=== PATIENT | female | born 1990 | race Caucasian/White ===

== ENCOUNTER 2020-07-26 12:45 | Outpatient (CLI) | payer SELFPAY ==
[2020-07-26 13:02] VITALS: BMI 37.0
--- NOTE | 2020-07-26 13:18 | US_ITS ---
PROCEDURE INFORMATION: Exam: US , Limited Exam date and time: 07/26/2020 1:18 PM Age: 29 years old Clinical indication: Condition or disease; Other: Full term large abdomen RO twins no care; ; Patient HX: Isauro lady with no ultrasound for this . 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 PT full term and in active labor; Additional info: Possiblity of twins, no prior scans TECHNIQUE: Imaging protocol: Real-time ultrasound of the maternal uterus with image documentation. Exam focused on the clinical indication. COMPARISON: No relevant prior studies available. FINDINGS: Gestation: Single intrauterine gestation. presentation: Vertex presentation. heart rate: heart rate 138 bpm. heart rate 132 bpm. Placenta: Anterior-fundal placenta. Amniotic fluid index: STEPHANIE 26.8 cm. BIOMETRY: Gestational age (AUA): Estimated gestational age 39 weeks, 3 days. Estimated due date (AUA): Estimated date of delivery July 27, 2020. Estimated weight: Estimated weight 4065 g (8 lb, 15 oz). Biparietal diameter: BPD 9.6 cm, 39 weeks 3 days Head circumference: HC 33.1 cm, 37 weeks 5 days Abdominal circumference: AC 38.0 cm, 42 weeks Femur length: FL 7.5 cm, 38 weeks 2 days DOPPLER: Umbilical artery Doppler: Umbilical artery SD ratio 2.1. IMPRESSION: 1. Single, living intrauterine gestation in vertex presentation, with estimated gestational age of 39 weeks, 3 days. 2. No acute abnormality. PROCEDURE INFORMATION: Exam: US Biophysical Profile Without Non-Stress Test Exam date and time: 07/26/2020 1:18 PM Age: 29 years old Clinical indication: Condition or disease; Other: Full term large abdomen RO twins no care; ; Patient HX: Isauro lady with no ultrasound for this . 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 PT full term and in active labor; Additional info: Possiblity of twins, no prior scans TECHNIQUE: Imaging protocol: US biophysical profile without non-stress testing. COMPARISON: No relevant prior studies available. FINDINGS: Gestation: Single intrauterine gestation. heart rate: heart rate 132 bpm. Presentation: Vertex presentation. Placenta: Anterior-fundal placenta. Amniotic fluid index: STEPHANIE 26.8 cm. BIOPHYSICAL PROFILE: Breathin/2 Gross body movements: 2/2 tone: 2/2 Qualitative amniotic fluid: 2/2 Biophysical Profile Score: 8/8 IMPRESSION: 1. Single, living intrauterine gestation in vertex presentation. 2. Normal biophysical profile score /8.
[2020-07-26 13:30] LABS: Microscopic, Urine URINE MICROSCOPIC (MICROSCOPIC)
[2020-07-26 13:46] LABS: Benzodiazepines Screen,Urine Negative ng/ml (<200)
[2020-07-26 13:47] LABS: Amphetamine/Metha Screen,Urine Negative ng/ml (<1000)
[2020-07-26 13:48] LABS: Barbiturates Screen,Urine Negative ng/ml (<200); Cannabinoid Screen,Urine Negative ng/ml (<50)
[2020-07-26 13:49] LABS: Cocaine Screen,Urine Negative ng/ml (<300); Methadone Screen,Urine Negative ng/ml (<300)
[2020-07-26 13:50] LABS: Opiate Screen,Urine Negative ng/ml (<300)
[2020-07-26 13:51] LABS: Phencyclidine Screen,Urine Negative ng/ml (<25)
[2020-07-26 13:58] VITALS: BP 135/91; PULSE 100; RESP 18; TEMP 36.6; O2SAT 97; BMI 34.8
[2020-07-26 14:05] LABS: Appearance,Urine CLEAR (Clear); Bilirubin,Urine Negative (Negative); Blood, Urine Negative (Negative); Color,Urine YELLOW (Yellow); Glucose,Urine (UA) Negative (Negative); Ketones,Urine Negative (Negative); Leukocyte Esterase,Urine Negative (Negative); Nitrate,Urine Negative (Negative); PH,Urine 5.5 (5.0-8.5); Protein,Urine Negative (Negative); Specific Gravity, Urine <= 1.005 (1.005-1.030); Urobilinogen,Urine 0.2 EU/dl (0.2)
[2020-07-26 14:07] LABS: Bacteria,Urine Trace /lpf; WBC,Urine Occasional #/hpf (0-3)
== END 2020-07-26 14:52 | disposition home or self-care (01) ==
LOC: OBOUT 12:50 → OB 12:50
PROVIDERS: Visit Provider Obstetrics & Gynecology
DX: O60.03 Preterm labor without delivery, third trimester (principal); O30.003 Twin pregnancy, unspecified number of placenta and unspecified number of amniotic sacs, third trimester; Z3A.39 39 weeks gestation of pregnancy
CPT/HCPCS: 59025; 76811; 76819; 76820; 80305; 81001; G0463

== ENCOUNTER 2020-07-29 15:18 | Outpatient (CLI) | payer SELFPAY ==
[2020-07-29 17:17] VITALS: BP 135/84; PULSE 76; RESP 17; O2SAT 97
== END 2020-07-29 17:20 | disposition home or self-care (01) ==
LOC: INF 15:19
PROVIDERS: PCP Internal Medicine Adolescent Medicine; Visit Provider Internal Medicine Adolescent Medicine
DX: Z29.13 Encounter for prophylactic Rho(D) immune globulin (principal)
CPT/HCPCS: 85461; 86850; 96372; J2790

== ENCOUNTER 2023-04-01 10:34 | Inpatient (IN) | payer SELFPAY ==
[2023-04-01 10:43] VITALS: BMI 38.5
[2023-04-01 10:59] LABS: Microscopic, Urine URINE MICROSCOPIC (MICROSCOPIC)
[2023-04-01 11:04] LABS: Appearance,Urine CLEAR (Clear); Bilirubin,Urine Negative (Negative); Blood, Urine TRACE-I (Negative); Color,Urine YELLOW (Yellow); Glucose,Urine (UA) Negative (Negative); Ketones,Urine Negative (Negative); Leukocyte Esterase,Urine Negative (Negative); Nitrate,Urine Negative (Negative); PH,Urine 5.5 (5.0-8.5); Protein,Urine Negative (Negative); Urobilinogen,Urine 0.2 EU/dl (0.2)
[2023-04-01 11:08] LABS: Basophils % 0.3 % (0.1-2.0); Eosinophils # 0.1 K/mm3 (0.0-0.4); Eosinophils % 0.8 % (0.1-12.0); Hematocrit 41.5 % (37.0-47.0); Hemoglobin 14.5 g/dL (12.2-16.2); Lymphocytes # 3.1 K/mm3 (0.7-4.5); Lymphocytes % 29.8 % (10-50); Mean Corpuscular HGB Conc 34.9 g/dL (31.8-35.4); Mean Corpuscular Hemoglobin 31.6 pg (27.0-31.2); Mean Corpuscular Volume 90.6 fl (81-99); Mean Platelet Volume 9.2 fl (7.4-10.4); Monocytes # 0.6 K/mm3 (0.1-1.0); Monocytes % 5.6 % (1.7-9.3); Neutrophils # 6.5 K/mm3 (1.8-7.8); Neutrophils % 63.4 % (37.0-80.0); Platelet Count 209 K/mm3 (142-424); Red Blood Count 4.58 M/mm3 (4.20-5.40); Red Cell Distribution Width 12.9 % (11.5-17.5); White Blood Count 10.2 K/mm3 (4.8-10.8)
[2023-04-01] MEDS: AMPICILLIN SODIUM 2 GM in 0.9 % SODIUM CHLORIDE 100 ML IV (11:15)
[2023-04-01] MEDS: OXYTOCIN/RINGERS LACTATE 30 UNITS/500 ML BAG IV (11:15)
[2023-04-01 11:17] LABS: Amphetamine/Metha Screen,Urine Negative ng/ml (<1000); Barbiturates Screen,Urine Negative ng/ml (<200)
[2023-04-01 11:18] LABS: Cannabinoid Screen,Urine Negative ng/ml (<50)
[2023-04-01 11:20] LABS: Opiate Screen,Urine Negative ng/ml (<300); Phencyclidine Screen,Urine Negative ng/ml (<25)
[2023-04-01 11:23] LABS: Bacteria,Urine Trace /lpf; Benzodiazepines Screen,Urine Negative ng/ml (<200)
--- NOTE | 2023-04-01 11:23 | P.HP_ITS ---
History of Present Illness *Admission Date: 04/01/23 *Reason for visit:: Arrest of labor *History of present illness: She is a 32-year-old 6 para 5 at 36+5 weeks gestational age. 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 She started labor yesterday morning and by last night really had only progressed to about 7 cm dilated. Her membranes are still intact. As a result of the arrest of labor she was transferred to the hospital here by her clerical car checker. She had an early ultrasound at 9 weeks in my office that confirmed her due date of April 24, 2023. A Rh- blood Rubella unknown GBS unknown PFSH PFS Disclaimer: The information contained in this section may have been updated after the patient was seen, as this information can be updated by other users. Medical History No significant past medical history Surgical History No significant past surgical history Social History Smoking Status: Never smoker alcohol intake: never current occupational status: unemployed Travel in the last 8 weeks: None Review of Systems Review of Systems Review of systems:: pertinent systems reviewed and negative unless documented below Meds Home Medications and Allergies Home Medications Medication Instructions Recorded Confirmed Type [id number] 3-fat com #1 27 1 cap PO AM 04/01/23 04/01/23 History mg-1 mg-300 mg capsule New Prescriptions to Start Prescriptions: Allergies Allergy/AdvReac Type Severity Reaction Status Date / Time No Known Allergies Allergy Verified 09/23/22 15:22 Exam Data for Last 24 hours Vital signs and Labs for Last 24 Hours: Laboratory Results - last 24 hr 04/01/23 10:30: Urine Color Yellow, Urine Appearance Clear, Urine pH 5.5, Ur Specific [place] 1.010, Urine Protein Negative, Urine Glucose (UA) Negative, Urine Ketones Negative, Urine Blood Trace-i, Urine Nitrate Negative, Urine Bilirubin Negative, Urine Urobilinogen 0.2, Ur Leukocyte Esterase Negative, Ur Barbituates Screen Negative, Ur Amphetamines Screen Negative, U Marijuana (THC) Screen Negative 04/01/23 10:48: WBC 10.2, RBC 4.58, Hgb 14.5, Hct 41.5, MCV 90.6, MCH 31.6 H, MCHC 34.9, RDW 12.9, Plt Count 209, MPV 9.2, Neut % (Auto) 63.4, Lymph % (Auto) 29.8, [place] % (Auto) 5.6, Eos % (Auto) 0.8, Baso % (Auto) 0.3, Neut # (Auto) 6.5, Lymph # (Auto) 3.1, [place] # (Auto) 0.6, Eos # (Auto) 0.1, Baso # (Auto) 0.0 I & O for Last 24 hours: Intake & Output 03/29/23 03/30/23 03/31/23 04/01/23 11:59 11:59 11:59 11:59 Weight 204 lb Constitutional Constitutional: no acute distress *Routine HEENT Exam Head: Present normocephalic Eye: Present EOMI and PERRL ENT: Present mucous membranes moist *Routine Neck Exam Neck: Present supple; Absent lymphadenopathy *Routine Respiratory Exam Respiratory: Present CTA bilaterally *Routine Cardiovascular Exam Cardiovascular: Present RRR *Routine Abdominal Exam Abdominal: Present soft and normoactive bowel sounds; Absent tenderness *Routine Rectal Exam Rectal:: deferred *Routine Genitalia Exam Genitalia:: deferred *Routine Extremities Exam Extremities: Absent cyanosis, clubbing or edema *Routine Skin Exam Skin: Present warm; Absent rash *Routine Neurological Exam Neurological: Present alert and oriented X3 Assessment and Plan *Assessment and plan (1) Prolonged labor with sixth : Status: Acute Category: Medical Code(s): O63.9 - Long labor, unspecified (2) Blood type, Rh negative: Status: Acute Category: Medical Code(s): Z67.91 - Unspecified blood type, Rh negative Plan We will go ahead and rupture her membranes and start oxytocin. We will expect a vaginal delivery. I have given her IV antibiotics since we do not know her GBS status and she is below 37 weeks.
[2023-04-01 11:24] LABS: RBC,Urine Occasional #/hpf (0-3); WBC,Urine Occasional #/hpf (0-3)
[2023-04-01 11:27] LABS: Cocaine Screen,Urine Negative ng/ml (<300)
--- NOTE | 2023-04-01 11:38 | EXP.LABOR.NO ---
Labor Note Subjective: Date: 04/01/23 Time: 11:38 irregular contractions Objective: NST:: Reactive Contractions:: infrequent Cervical Dilation:: 6 Effacement:: 75% Station: -2 Membranes: artificially ruptured Comment:: I ruptured membranes and there was clear fluid. Fetus: Monitoring?: Yes monitoring type:: External Assessment: Labor progressing?: No Cephalopelvic disproportion?: No Plan: Anesthesia for epidural?: No Continue to labor down?: Yes Plan for ?: No Continue to monitor?: Yes Start pushing?: No Comment:: We have started her on IV oxytocin and I have ruptured her membranes. We will expect a vaginal delivery.
[2023-04-01 11:55] LABS: Methadone Screen,Urine Negative ng/ml (<300)
--- NOTE | 2023-04-01 13:20 | P.PCN_ITS ---
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 She was found to be 7 cm dilated at the time of arrest of labor. As result of that she was brought here to the hospital for augmentation of her labor. She has had 5 previous vaginal deliveries. She was started on IV oxytocin had her membranes ruptured. She progressed to full dilation and delivered spontaneously a liveborn male child at 1300 in the afternoon of April 01, 2023. On delivery the head it was noted that there was a loose nuchal cord which was easily reduced. This was followed by the anterior shoulder and the rest the infant's body atraumatically. The baby was vigorous so we allowed the cord to continue to pulsate for 1 minute. The cord was then doubly clamped and cut and the infant was handed off to Dr. Alanis who assigned Apgars of 7 at 1 minute and 9 at 5 minutes. We then obtained cord blood since the mother is Rh-. There were no perineal or vaginal lacerations. Estimated blood loss was approximately 200 cc. She has A Rh- blood, rubella and GBS status was unknown. She did receive IV antibiotics in labor. Her industrial technologist is Dr. Alanis. Placental Delivery Description: Spontaneous
[2023-04-01] MEDS: ACETAMINOPHEN 500MG TAB 1000 MG PO (13:30)
[2023-04-01 14:34] VITALS: BP 132/86; PULSE 104; RESP 18; TEMP 36.5; O2SAT 100; BMI 39.8
--- NOTE | 2023-04-01 19:43 | EXP.DC.SUM ---
General Admission date:: 04/01/23 Discharge date: 04/01/23 HPI HPI HPI: She is a 32-year-old 6 para 5 at 36+5 weeks gestational age. 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 She started labor yesterday morning and by last night really had only progressed to about 7 cm dilated. Her membranes are still intact. As a result of the arrest of labor she was transferred to the hospital here by her aviation safety technician. She had an early ultrasound at 9 weeks in my office that confirmed her due date of April 24, 2023. A Rh- blood Rubella unknown GBS unknown Hospital Course Hospital Course Hospital Course: She arrived with arrest of labor and was found to be 6 cm dilated. She was started on IV oxytocin had her membranes ruptured. She progressed to full dilation and delivered spontaneously a liveborn male child at 1 PM on the afternoon of April 01, 2023.. Baby had Apgars of 7 at 1 minute and 9 at 5 minutes. He weighed 9 pounds 3 ounces. There were no perineal or vaginal lacerations. The baby had Rh- blood so mother did not require RhoGAM. She will be discharged home to follow-up with her aviation safety technician in a few days time. She is breast-feeding. She will avoid heavy lifting. Her condition on discharge is stable and improved. Her lochia is normal. Exam Data for Last 24 hours Vital signs and Labs for Last 24 Hours: Temp Pulse Resp BP Pulse Ox O2 Del Method 97.7 F 104 H 18 132/86 100 Room Air 04/01/23 14:34 04/01/23 14:34 04/01/23 14:34 04/01/23 14:34 04/01/23 14:34 04/01/23 14:34 Laboratory Results - last 24 hr 04/01/23 10:30: Urine Color Yellow, Urine Appearance Clear, Urine pH 5.5, Ur Specific [place] 1.010, Urine Protein Negative, Urine Glucose (UA) Negative, Urine Ketones Negative, Urine Blood Trace-i, Urine Nitrate Negative, Urine Bilirubin Negative, Urine Urobilinogen 0.2, Ur Leukocyte Esterase Negative, Urine RBC Occasional, Urine WBC Occasional, Ur Squamous Epith Cells 5-10, Urine Bacteria Trace, Urine Opiates Screen Negative, Urine Methadone Screen Negative, Ur Barbituates Screen Negative, Ur Phencyclidine Scrn Negative, Ur Amphetamines Screen Negative, U Benzodiazepines Scrn Negative, Urine Cocaine Screen Negative, U Marijuana (THC) Screen Negative 04/01/23 10:48: WBC 10.2, RBC 4.58, Hgb 14.5, Hct 41.5, MCV 90.6, MCH 31.6 H, MCHC 34.9, RDW 12.9, Plt Count 209, MPV 9.2, Neut % (Auto) 63.4, Lymph % (Auto) 29.8, [place] % (Auto) 5.6, Eos % (Auto) 0.8, Baso % (Auto) 0.3, Neut # (Auto) 6.5, Lymph # (Auto) 3.1, [place] # (Auto) 0.6, Eos # (Auto) 0.1, Baso # (Auto) 0.0, Blood Type A Negative, Antibody Screen Positive I & O for Last 24 hours: Intake & Output 03/30/23 03/31/23 04/01/23 04/02/23 11:59 11:59 11:59 11:59 Weight 204 lb 204 lb Constitutional Constitutional: no acute distress *Routine HEENT Exam Head: Present normocephalic *Routine Respiratory Exam Respiratory: Present normal respiratory effort; Absent accessory muscle use Results Data Completed and Pending Labs on day of discharge: Labs from last 24 hours 04/01/23 04/01/23 10:48 10:30 WBC 10.2 RBC 4.58 Hgb 14.5 Hct 41.5 MCV 90.6 MCH 31.6 H MCHC 34.9 RDW 12.9 Plt Count 209 MPV 9.2 Neut % (Auto) 63.4 Lymph % (Auto) 29.8 [place] % (Auto) 5.6 Eos % (Auto) 0.8 Baso % (Auto) 0.3 Neut # (Auto) 6.5 Lymph # (Auto) 3.1 [place] # (Auto) 0.6 Eos # (Auto) 0.1 Baso # (Auto) 0.0 Urine Color Yellow Urine Appearance Clear Urine pH 5.5 Ur Specific [place] 1.010 Urine Protein Negative Urine Glucose (UA) Negative Urine Ketones Negative Urine Blood Trace-i Urine Nitrate Negative Urine Bilirubin Negative Urine Urobilinogen 0.2 Ur Leukocyte Esterase Negative Urine RBC Occasional Urine WBC Occasional Ur Squamous Epith Cells 5-10 Urine Bacteria Trace Urine Opiates Screen Negative Urine Methadone Screen Negative Ur Barbituates Screen Negative Ur Phencyclidine Scrn Negative Ur Amphetamines Screen Negative U Benzodiazepines Scrn Negative Urine Cocaine Screen Negative U Marijuana (THC) Screen Negative Blood Type A Negative Antibody Screen Positive Antibody Identification Pending DS: Diagnosis Discharge Diagnosis (1) Prolonged labor with sixth : Status: Acute Code(s): O63.9 - Long labor, unspecified (2) Blood type, Rh negative: Status: Acute Code(s): Z67.91 - Unspecified blood type, Rh negative (3) Normal delivery: Status: Acute Code(s): O80 - Encounter for full-term uncomplicated delivery Meds Home Medications and Allergies Home Medications Medication Instructions Recorded Confirmed Type [id number] 3-fat com #1 27 1 cap PO AM 04/01/23 04/01/23 History mg-1 mg-300 mg capsule New Prescriptions to Start Prescriptions: Allergies Allergy/AdvReac Type Severity Reaction Status Date / Time No Known Allergies Allergy Verified 09/23/22 15:22 Discharge Plan Disposition Patient Disposition: Home, Self-Care Discharge Order Discharge Orders: Discharge Order (Routine); Ordered 04/01/23 Ordered By: Reagan Rodarte Follow up Plan Follow up with: Reagan Rodarte MD [Staff Physician] - 2 weeks Prescriptions/Medication Reconciliation: Continued [id number] 3-fat com #1 27-1-300 mg Capsule 1 cap PO AM Problem Reconciliation Problems Reviewed?: Yes Patient Discharge Instructions ACTIVITY: No heavy lifting DIET: continue same diet Patient Instructions: Depression, Hemorrhage, [facility] Post Discharge Instructions Providers Primary Care Provider: Provider,Referral Admit Provider: Reagan Rodarte Attending Provider: Reagan Rodarte
== END 2023-04-01 20:20 | disposition home or self-care (01) | DRG 806 ==
LOC: OBOUT 10:35 → OB 10:35
PROVIDERS: Admitting Provider Nurse Practitioner Obstetrics & Gynecology; Visit Provider Nurse Practitioner Obstetrics & Gynecology
DX: O69.81X0 Labor and delivery complicated by cord around neck, without compression, not applicable or unspecified (principal); O63.9 Long labor, unspecified; Z37.0 Single live birth
CPT/HCPCS: 59409; 59025; 80307; 81001; 85025; 86850; 86870; J0290

== ENCOUNTER 2024-10-12 10:59 | Outpatient (CLI) | payer SELFPAY ==
[2024-10-12 11:23] VITALS: BP 123/63; PULSE 66; RESP 18; O2SAT 98
[2024-10-12] MEDS: RHO(D) IMMUNE GLOBULIN 1,500 UNIT (300MCG) SYRINGE 300 MCG IM (11:23)
== END 2024-10-12 11:30 | disposition home or self-care (01) ==
LOC: LAB 11:00
PROVIDERS: Visit Provider Obstetrics & Gynecology
DX: Z67.91 Unspecified blood type, Rh negative (principal)
CPT/HCPCS: 36415; 85461; 96372; J2790